=== PATIENT | female | born 1985 | race Caucasian/White ===

== ENCOUNTER 2016-05-03 13:34 | Inpatient (IN) | payer MEDICAID ==
[~2016-05-03] VITALS: Ht 162.6 cm; Wt 92.7 kg
[2016-05-03] MEDS ORDERED: INHALER IH (13:36)
[2016-05-03 14:33] LABS: BASOPHILS % (AUTO) 0.4 % (0.0-2.0); EOSINOPHILS % (AUTO) 0.5 % (1.0-6.0); HEMATOCRIT 40.9 % (36-46); HEMOGLOBIN 13.6 g/dL (12.0-16.0); LYMPHOCYTES # (AUTO) 2.1 K/uL (1.0-4.8); LYMPHOCYTES % (AUTO) 8.6 % (22.0-44.0); MEAN CORPUSCULAR HEMOGLOBIN 28.7 pg (26.0-34.0); MEAN CORPUSCULAR HGB CONC 33.3 G/dL (31.0-37.0); MEAN CORPUSCULAR VOLUME 86 fL (80-100); NEUTROPHILS # (AUTO) 21.2 K/uL (1.8-7.7); PLATELET COUNT (AUTO) 461 K/uL (150-450); RED BLOOD CELL COUNT(AUTO) 4.74 MIL/uL (4.00-5.20); RED CELL DISTRIBUTION WIDTH 14.2 % (11.5-14.5); WHITE BLOOD COUNT (AUTO) 24.5 K/uL (4.5-11.0)
[2016-05-03 14:35] LABS: NEUTROPHILS % (AUTO) 86.5 % (40.0-70.0)
[2016-05-03 14:42] LABS: ANION GAP 6 mmol/L (8-16); CALCIUM, TOTAL 9.1 mg/dL (8.8-10.5); CARBON DIOXIDE 29 mmol/L (22-29); CHLORIDE 101 mmol/L (98-107); CREATININE 0.74 mg/dL (0.60-1.30); GLOMERULAR FILTR. RATE CALC > 60 mL/min (>60); POTASSIUM 3.9 mmol/L (3.5-5.1); SODIUM SERUM 136 mmol/L (136-145); UREA NITROGEN, BLOOD 13 mg/dL (7-18)
[2016-05-03 14:48] LABS: ALANINE AMINOTRANSFERASE 78 U/L (12-78); ALBUMIN 3.8 g/dL (3.4-5.0); ASPARTATE AMINOTRANSFERASE 125 U/L (15-37); BILIRUBIN,TOTAL 0.4 mg/dL (0.1-1.0); TOTAL PROTEIN, SERUM 8.2 g/dL (6.4-8.2)
[2016-05-03 17:21] LABS: APPEARANCE,URINE TURBID (CLEAR); GLUCOSE, URINE (UA) NEGATIVE (NEGATIVE); KETONES,URINE NEGATIVE (NEGATIVE); LEUKOCYTE ESTERASE ,URINE LARGE (NEGATIVE); OCCULT BLOOD,URINE NEGATIVE (NEGATIVE); PH,URINE 8.5 (5.0-8.0); PROTEIN,URINE NEGATIVE (NEGATIVE)
[2016-05-03 17:26] LABS: ADD UA MICROSCOPIC YES
[2016-05-03 17:41] LABS: AMORPHOUS SEDIMENT,UR Moderate /LPF (None Seen); SQUAMOUS EPITHELIAL CELL,UR Few /LPF (None Seen)
[2016-05-03 17:45] LABS: RBC,URINE 0-2 /HPF (0-2)
[2016-05-03] MEDS ORDERED: ACETAMINOPHEN 325 MG TABLET PO PRN (20:30)
[2016-05-03] MEDS ORDERED: ONDANSETRON HCL 4 MG/2 ML VIAL IVP PRN (20:30)
[2016-05-03] MEDS ORDERED: 0.9% SODIUM CHLORIDE 10 ML SYRINGE IVP PRN (20:30)
[2016-05-03 21:03] VITALS: BP 117/80
[2016-05-03 23:04] VITALS: BP 125/71
[2016-05-03] MEDS ORDERED: INFLUENZA VIRUS VACCINE QVS 2016-17 (3YR+)/PF 60 MCG/0.5 ML SYRINGE IM ONE (23:30)
[2016-05-04] MEDS ORDERED: MORPHINE SULFATE 2 MG/ML SYRINGE IVP PRN (06:45)
[2016-05-04] MEDS ORDERED: ONDANSETRON HCL 4 MG/2 ML VIAL IVP PRN (06:45)
[2016-05-04] MEDS ORDERED: ACETAMINOPHEN 325 MG TABLET PO PRN (06:45)
[2016-05-04] MEDS ORDERED: BISACODYL 10 MG RECTAL RECTAL SUPPOSITORY PR PRN (06:45)
[2016-05-04] MEDS ORDERED: ZOLPIDEM TARTRATE 5 MG TABLET PO PRN (06:45)
[2016-05-04] MEDS ORDERED: IPRATROPIUM BROMIDE 0.5 MG/2.5 ML NEB SOLUTION NEB PRN (06:45)
[2016-05-04] MEDS ORDERED: ALBUTEROL SULFATE 2.5 MG/0.5 ML NEB SOLUTION NEB PRN (06:45)
[2016-05-04] MEDS ORDERED: MAGNESIUM HYDROXIDE SUSPENSION 30 ML UDCUP PO PRN (06:45)
[2016-05-04] MEDS ORDERED: HYDROCODONE/ACETAMINOPHEN 5-325 MG TABLET PO PRN (06:45)
[2016-05-04 07:15] VITALS: BP 121/76
[2016-05-04 07:47] LABS: ANION GAP 8 mmol/L (8-16); CALCIUM, TOTAL 9.2 mg/dL (8.8-10.5); CARBON DIOXIDE 27 mmol/L (22-29); CHLORIDE 100 mmol/L (98-107); CREATININE 0.83 mg/dL (0.60-1.30); GLOMERULAR FILTR. RATE CALC > 60 mL/min (>60); POTASSIUM 3.9 mmol/L (3.5-5.1); SODIUM SERUM 135 mmol/L (136-145); UREA NITROGEN, BLOOD 10 mg/dL (7-18)
[2016-05-04 07:53] LABS: ALANINE AMINOTRANSFERASE 307 U/L (12-78); ALBUMIN 3.8 g/dL (3.4-5.0); ASPARTATE AMINOTRANSFERASE 189 U/L (15-37); BILIRUBIN,TOTAL 0.5 mg/dL (0.1-1.0); TOTAL PROTEIN, SERUM 8.2 g/dL (6.4-8.2)
[2016-05-04] MEDS ORDERED: HEPARIN SODIUM,PORCINE 5,000 UNITS/ML VIAL SQ SCH (08:00)
[2016-05-04 08:08] LABS: BASOPHILS # (AUTO) 0.09 K/uL (0.00-0.20); BASOPHILS % (AUTO) 0.9 % (0.0-2.0); EOSINOPHILS # (AUTO) 0.11 K/uL (0.00-0.70); EOSINOPHILS % (AUTO) 0.99 % (1.0-6.0); HEMATOCRIT 39.5 % (36-46); HEMOGLOBIN 13.2 g/dL (12.0-16.0); LYMPHOCYTES # (AUTO) 3.1 K/uL (1.0-4.8); LYMPHOCYTES % (AUTO) 28.3 % (22.0-44.0); MEAN CORPUSCULAR HEMOGLOBIN 28.6 pg (26.0-34.0); MEAN CORPUSCULAR HGB CONC 33.4 G/dL (31.0-37.0); MEAN CORPUSCULAR VOLUME 86 fL (80-100); MONOCYTES # (AUTO) 0.6 K/uL (0.1-1.0); MONOCYTES % (AUTO) 5.3 % (2.0-9.0); NEUTROPHILS # (AUTO) 7.1 K/uL (1.8-7.7); NEUTROPHILS % (AUTO) 64.6 % (40.0-70.0); PLATELET COUNT (AUTO) 450 K/uL (150-450); RED BLOOD CELL COUNT(AUTO) 4.61 MIL/uL (4.00-5.20); RED CELL DISTRIBUTION WIDTH 14.6 % (11.5-14.5); WHITE BLOOD COUNT (AUTO) 11.1 K/uL (4.5-11.0)
[2016-05-04] MEDS ORDERED: DOCUSATE SODIUM 100 MG CAPSULE PO SCH (09:00)
[2016-05-04] MEDS ORDERED: PANTOPRAZOLE SODIUM 40 MG/VIAL IVP SCH (09:00)
[2016-05-04 11:15] VITALS: BP 133/79
== END 2016-05-04 13:17 | disposition home or self-care (01) ==
LOC: EDBD 13:37 → EMS 13:37 → 6N 20:16
PROVIDERS: ADMIT Hospitalist; ATTEND Hospitalist
DX: K80.20 Calculus of gallbladder without cholecystitis without obstruction (principal); N13.30 Unspecified hydronephrosis; D72.829 Elevated white blood cell count, unspecified; J45.909 Unspecified asthma, uncomplicated; Z71.6 Tobacco abuse counseling
CPT/HCPCS: 76700; 87086; 99285; C9113; J1644

== ENCOUNTER 2016-05-18 17:35 | Emergency (ER) | payer MEDICAID ==
[~2016-05-18] VITALS: Ht 165.1 cm; Wt 92.7 kg
[~2016-05-18 17:35] MED LIST: INHALER IH
[2016-05-18] MEDS ORDERED: DONNATAL/LIDOCAINE/MAALOX 55 ML BOTTLE PO ONE (19:15)
[2016-05-18] MEDS ORDERED: OMEPRAZOLE 20 MG CAPSULE PO ONE (19:15)
[2016-05-18 20:28] VITALS: BP 147/76
== END 2016-05-18 20:30 | disposition home or self-care (01) ==
LOC: EMS 17:37
DX: K21.9 Gastro-esophageal reflux disease without esophagitis (principal)
CPT/HCPCS: 99283; Z7610